=== PATIENT | female | born 1950 | race Two or more races ===

== ENCOUNTER → 2020-02-08 | Outpatient (CLI) | payer MEDICARE ==
[~2020-02-08] MED LIST: ESOM20CA PO; LEVO125T5 PO; LISI5TAB7 PO; METF500T17 PO; MIRA25TA PO
[2020-02-08 13:56] LABS: BASOPHILS # (AUTO) 0.06 x10^3/uL (0-0.1); BASOPHILS % (AUTO) 1 % (0-1); EOSINOPHILS # (AUTO) 0.17 x10^3/uL (0-0.4); EOSINOPHILS % (AUTO) 2 % (1-7); LYMPHOCYTES % (AUTO) 34 % (22-44); MD NO; MEAN CORPUSCULAR HEMOGLOBIN 30.3 pg (27.0-34.8); MEAN CORPUSCULAR HGB CONC 32.9 g/dL (32.4-35.8); MEAN CORPUSCULAR VOLUME 92.1 fL (80-100); MEAN PLATELET VOLUME 7.8 fL (7.4-10.4); MONOCYTES # (AUTO) 0.52 x10^3/uL (0.2-0.8); MONOCYTES % (AUTO) 6 % (2-9); NEUTROPHILS % (AUTO) 57 % (42-75); PLATELET COUNT 345 x10^3/uL (130-400); RED BLOOD COUNT 3.94 x10^6/uL (3.82-5.3); RED CELL DISTRIBUTION WIDTH 12.9 % (9.6-15.2)
[2020-02-08 14:10] LABS: ALBUMIN 3.6 g/dL (3.4-5.0); ANION GAP 8 mmol/L (5-15); CALCIUM 9.1 mg/dL (8.5-10.1); CHLORIDE 109 mmol/L (98-107)
[2020-02-08 14:12] LABS: INTERNATIONAL NORMALIZED RATIO 1.06 (0.93-1.1); PROTHROMBIN TIME 11.2 Seconds (9.6-11.5)
[2020-02-08 14:14] LABS: ALANINE AMINOTRANSFERASE 24 U/L (12-78); ALKALINE PHOSPHATASE 86 U/L (45-117); BILIRUBIN,TOTAL 0.6 mg/dL (0.2-1.0); CREATININE 0.97 mg/dL (0.55-1.02); TOTAL PROTEIN 8.1 g/dL (6.4-8.2)
== END | disposition home or self-care (01) ==
LOC: STAR 12:46
PROVIDERS: ATTEND Orthopaedic Surgery
DX: Z01.818 Encounter for other preprocedural examination (principal); M17.12 Unilateral primary osteoarthritis, left knee; R94.31 Abnormal electrocardiogram [ECG] [EKG]
CPT/HCPCS: 36415; 80053; 83036; 85025; 85610; 85730; 87081; 93005

== ENCOUNTER 2020-02-13 09:34 | Observation (INO) | payer MEDICARE ==
[~2020-02-13] VITALS: Ht 157.5 cm; Wt 71.9 kg
[2020-02-13] MEDS: INSULIN LISPRO 100 UNITS/ML, PEN SQ-INSULIN SCH ×4 (07:00→21:34)
[2020-02-13] MEDS: DOCUSATE 100 MG CAPSULE PO SCH ×2 (09:00→19:52)
[~2020-02-13 09:34] MED LIST changes: +BISACODYL 10 MG SUPP PR PRN; +CEFAZOLIN 1,000 MG ONE; +CEFAZOLIN PMX 2GM/50ML 50 ML IVPB SCH; +DEXAMETHASONE 4 MG/ML, 1ML ONE; +DIPHENHYDRAMINE 50 MG CAPSULE PO PRN; +EPINEPHRINE 1 MG/ML, 1ML ONE; +FENTANYL PF 250 MCG/5ML ONE; +GLYCOPYRROLATE 0.2MG/1ML, 5ML ONE; +HYDROcodone/APAP 5/325 TABLET PO PRN; +HYDROmorphone 1 MG/ML, 1ML INJ IV PRN; +KETOROLAC 60 MG/2 ML ONE; +MAGNESIUM HYDROXIDE 8%, 30ML UDC PO PRN; +NEOSTIGMINE 1 MG/ML, 10ML ONE; +ONDANSETRON 2MG/ML, 2ML IV PRN; +ONDANSETRON 2MG/ML, 2ML ONE; +ONDANSETRON 4 MG TABLET PO PRN; +PROPOFOL 10 MG/ML, 20ML ONE; +ROCURONIUM 10MG/ML,5ML ONE; +ROPIvacaine/PF 0.2%, 20 ML ONE; +ROPIvacaine/PF 0.5%, 20 ML ONE; +ROPIvacaine/PF 0.5%, 30 ML ONE; +SENNA/DOCUSATE TABLET PO PRN; +SODIUM CHLORIDE 0.9% 50 ML ONE; +TRANEXAMIC ACID 100 MG/ML, 10ML ONE; +VANCOMYCIN 1,000 MG ONE; +ZOLPIDEM 5MG TABLET PO PRN
[2020-02-13] MEDS ORDERED: GABAPENTIN 300 MG CAPSULE PO STA (10:15)
[2020-02-13] MEDS ORDERED: ACETAMINOPHEN 500 MG TABLET PO STA (10:15)
[2020-02-13] MEDS ORDERED: LIDOCAINE-MPF 1%, 2ML INFIL STA (10:16)
[2020-02-13] MEDS ORDERED: CHLORHEXIDINE 15 ML UDC MM STA (10:16)
[2020-02-13] MEDS ORDERED: LACTATED RINGERS 1,000 ML IV SCH (10:16)
[2020-02-13 10:17] VITALS: BP 159/78
[2020-02-13] MEDS ORDERED: CHLORHEXIDINE 15 ML UDC ONE (10:26)
[2020-02-13] MEDS ORDERED: GABAPENTIN 300 MG CAPSULE ONE (10:26)
[2020-02-13] MEDS ORDERED: ACETAMINOPHEN 500 MG TABLET ONE (10:26)
[2020-02-13] MEDS ORDERED: LABETALOL 5MG/ML, 20ML IV PRN (11:00)
[2020-02-13] MEDS ORDERED: OXYcodone 5 MG/5 ML ORAL.SOL UDC PO PRN (11:00)
[2020-02-13] MEDS ORDERED: PROMETHAZINE 25 MG/ML, 1ML IVPush PRN (11:00)
[2020-02-13] MEDS ORDERED: hydrALAzine 20 MG/ML, 1ML IV PRN (11:00)
[2020-02-13] MEDS ORDERED: MEPERIDINE/PF 25MG/0.5ML IVPush PRN (11:00)
[2020-02-13] MEDS ORDERED: HYDROmorphone 1 MG/ML, 1ML INJ IVPush PRN (11:00)
[2020-02-13] MEDS ORDERED: FENTANYL PF 100 MCG/2ML IV PRN (11:00)
[2020-02-13] MEDS ORDERED: HALOPERIDOL 5 MG/ML IV PRN (11:00)
[2020-02-13] MEDS ORDERED: morphine SULFATE 10 MG/ML, 1ML IVPush PRN (11:00)
[2020-02-13] MEDS ORDERED: hydrALAzine 20 MG/ML, 1ML ONE ×2 (11:10→11:31)
[2020-02-13] MEDS ORDERED: FENTANYL PF 250 MCG/5ML ONE (11:28)
[2020-02-13] MEDS ORDERED: SUGAMMADEX 200 MG/2 ML IVPush ONE (12:22)
[2020-02-13 13:55] VITALS: BP 131/72
[2020-02-13] MEDS: NS + 20MEQ KCL 1,000 ML IV SCH (16:27)
[2020-02-13] MEDS: ASPIRIN 81 MG TABLET EC PO SCH (17:20)
[2020-02-13] MEDS: metFORMIN 500 MG TABLET PO SCH (17:20)
[2020-02-13] MEDS: CEFAZOLIN PMX 2GM/50ML 50 ML IVPB SCH (19:52)
[2020-02-13 19:58] VITALS: BP 113/67
[2020-02-13 23:55] VITALS: BP 119/74
[2020-02-14] MEDS: ACETAMINOPHEN 650 MG/20.3 ML UDC PO PRN ×2 (00:02→04:32)
[2020-02-14] MEDS: OXYcodone IR 5MG TABLET PO PRN ×3 (00:03→10:34)
[2020-02-14 00:46] VITALS: BP 117/67
[2020-02-14] MEDS: NS + 20MEQ KCL 1,000 ML IV SCH (03:30)
[2020-02-14] MEDS: CEFAZOLIN PMX 2GM/50ML 50 ML IVPB SCH (04:32)
[2020-02-14] MEDS ORDERED: LEVOTHYROXINE 125 MCG TABLET PO SCH (06:00)
[2020-02-14] MEDS ORDERED: PANTOPRAZOLE 20MG TABLET PO SCH (06:00)
[2020-02-14] MEDS: ASPIRIN 81 MG TABLET EC PO SCH (06:10)
[2020-02-14] MEDS: INSULIN LISPRO 100 UNITS/ML, PEN SQ-INSULIN SCH ×2 (06:15→12:42)
[2020-02-14 06:31] VITALS: BP 112/67
[2020-02-14] MEDS: DOCUSATE 100 MG CAPSULE PO SCH (08:40)
[2020-02-14] MEDS: metFORMIN 500 MG TABLET PO SCH (08:40)
[2020-02-14] MEDS ORDERED: LISINOPRIL 5 MG TABLET PO SCH (09:00)
[2020-02-14] MEDS ORDERED: ASPI81TA45 PO (09:54)
[2020-02-14] MEDS ORDERED: OXYC5TAB3 PO (10:22)
[2020-02-14] MEDS ORDERED: TRAM50TA2 PO (10:22)
[2020-02-14] MEDS ORDERED: MELO7.5T31 PO (10:23)
[2020-02-14 12:31] VITALS: BP 122/67
== END 2020-02-14 13:15 | disposition home or self-care (01) ==
LOC: OUT 09:34 → 3N 14:00 → OUT 21:34 → 3N 21:34 → DCLOUNGE 02-14 13:01
PROVIDERS: ADMIT Orthopaedic Surgery; ATTEND Orthopaedic Surgery
DX: M17.12 Unilateral primary osteoarthritis, left knee (principal); Z11.59 Encounter for screening for other viral diseases; E11.9 Type 2 diabetes mellitus without complications; Z90.710 Acquired absence of both cervix and uterus; Z90.49 Acquired absence of other specified parts of digestive tract; Z85.038 Personal history of other malignant neoplasm of large intestine; Z85.048 Personal history of other malignant neoplasm of rectum, rectosigmoid junction, and anus; Z85.05 Personal history of malignant neoplasm of liver; Z79.899 Other long term (current) drug therapy
CPT/HCPCS: 27447; 36415; 80053; 82962; 83036; 85014; 85018; 85025; 85610; 85730; 87081; 87635; 93005; 96365; 96366; 97163; 97165; C1713; C1776; G0378; J0171; J0360; J0690; J1100; J1815; J1885; J2405; J2704; J2710; J2795; J3010; J3370; J3480; J7120